=== PATIENT | male | born 1995 | race Caucasian/White ===

== ENCOUNTER 2017-01-10 12:03 | Emergency (ER) | payer OTHER ==
[~2017-01-10] VITALS: Ht 160 cm; Wt 70.3 kg
--- NOTE | 2017-01-10 12:03 | NUR ---
PATIENT BIBA TO BED 3.
--- NOTE | 2017-01-10 12:05 | NUR ---
21/M BIBA C/O SOB X TODAY. PATIENT C/O L FLANK X TODAY. PT DENIES N/V/D; SKIN IS PINK/WARM/DRY; AAOX4 WITH EVEN AND STEADY GAIT; LUNGS CLEAR BL; HR EVEN AND REGULAR; PT DENIES ANY SOB, OR COUGH AT THIS TIME AFTER RECIEVING BREATHING TX IN THE FIELD PRIOR TO ARRIVAL; PATIENT STATES PAIN OF 6/10 AT THIS TIME; VSS; PATIENT POSITIONED FOR COMFORT; HOB ELEVATED; BEDRAILS UP X2; BED DOWN. ER MD MADE AWARE OF PT STATUS.
[2017-01-10 12:11] VITALS: BP 124/78
[2017-01-10] MEDS ORDERED: VENTOLIN H0.09 MG/Ac IH (12:16)
[2017-01-10 14:00] VITALS: BP 123/67
--- NOTE | 2017-01-10 14:00 | NUR ---
Patient discharged with v/s stable. Written and verbal after care instructions given and explained. Patient alert, oriented and verbalized understanding of instructions. Ambulatory with steady gait. All questions addressed prior to discharge. ID band removed. Patient advised to follow up with PMD. Rx of ALBUTEROL &PREDNISONE given. Patient educated on indication of medication including possible reaction and side effects. Opportunity to ask questions provided and answered.
== END 2017-01-10 14:00 | disposition home or self-care (01) ==
LOC: MED 12:10
DX: J45.901 Unspecified asthma with (acute) exacerbation (principal); F17.200 Nicotine dependence, unspecified, uncomplicated

== ENCOUNTER 2019-02-24 15:28 | Emergency (ER) | payer OTHER ==
[~2019-02-24] VITALS: Ht 162.6 cm; Wt 72.6 kg
[~2019-02-24 15:28] MED LIST: ALBU0.0912 IH
[2019-02-24 15:33] VITALS: BP 122/55
--- NOTE | 2019-02-24 17:18 | NUR ---
PATIENT VITAL SIGNS TAKEN. IN NO DISTRESS.EXPLAINED FOR THE WAIT.
--- NOTE | 2019-02-24 18:34 | NUR ---
PATIENT PRESENTS TO ED WITH C/O CRAMPING EPIGASTRIC PAIN --LAST BM TODAY SOFT WITH FORM DESCRIBED BY PT. DENIES RECENT INJURY/TRAUMA SKIN IS PINK/WARM/DRY; AAOX4 WITH EVEN AND STEADY GAIT; LUNGS CLEAR BL; HR EVEN AND REGULAR; PT DENIES ANY FEVER, CP, SOB, OR COUGH AT THIS TIME; PATIENT STATES PAIN OF 8/10 AT THIS TIME; VSS; PATIENT POSITIONED FOR COMFORT; HOB ELEVATED; BEDRAILS UP X2; BED DOWN. ER MD MADE AWARE OF PT STATUS.
--- NOTE | 2019-02-24 21:19 | NUR ---
DR PAIGE AT BEDSIDE
[2019-02-24 21:45] LABS: BASOPHILS # (AUTO) 0.1 K/uL (0.00-0.22); BASOPHILS % (AUTO) 0.9 % (0.0-2.0); EOSINOPHILS # (AUTO) 0.2 K/uL (0-0.4); EOSINOPHILS % (AUTO) 3.1 % (0.0-4.0); HEMATOCRIT 44.3 % (36-52); HEMOGLOBIN 14.2 g/dL (12.0-18.0); LYMPHOCYTES # (AUTO) 3.2 K/uL (2.0-11.5); LYMPHOCYTES % (AUTO) 51.7 % (20.5-51.1); MEAN CORPUSCULAR HEMOGLOBIN 26 pg (27-31); MEAN CORPUSCULAR HGB CONC 32 g/dL (33-37); MONOCYTES # (AUTO) 0.5 K/uL (0.8-1.0); MONOCYTES % (AUTO) 8.7 % (1.7-9.3); NEUTROPHILS # (AUTO) 2.2 K/uL (1.8-7.7); NEUTROPHILS % (AUTO) 35.6 % (42.2-75.2); PLATELET COUNT (AUTO) 271 K/uL (140-450); RED BLOOD CELL COUNT(AUTO) 5.54 MIL/uL (4.20-6.10); RED CELL DISTRIBUTION WIDTH 14.2 % (11.6-13.7); WHITE BLOOD COUNT (AUTO) 6.1 K/uL (4.8-10.8)
[2019-02-24 21:57] LABS: ANION GAP 11.9 (8-16); CARBON DIOXIDE 28.2 mmol/L (21-32); CREATININE 0.9 mg/dL (0.7-1.3); POTASSIUM 4.1 mmol/L (3.5-5.1)
[2019-02-24 22:04] LABS: ALBUMIN 3.8 g/dL (3.4-5.0); TOTAL BILIRUBIN 0.6 mg/dL (0.0-1.0)
[2019-02-24 22:11] VITALS: BP 119/62
--- NOTE | 2019-02-24 22:11 | NUR ---
Patient discharged with v/s stable. Written and verbal after care instructions given and explained. Patient alert, oriented and verbalized understanding of instructions. Ambulatory with steady gait. All questions addressed prior to discharge. ID band removed. Patient advised to follow up with PMD. Rx of MILK OF MAG given. Patient educated on indication of medication including possible reaction and side effects. Opportunity to ask questions provided and answered.
[2019-02-24 22:58] LABS: APPEARANCE,URINE CLEAR (CLEAR); BILIRUBIN,URINE NEGATIVE (NEGATIVE); BLOOD, URINE NEGATIVE (NEGATIVE); COLOR,URINE YELLOW (YELLOW); LEUKOCYTE ESTERASE ,URINE NEGATIVE (NEGATIVE); NITRITE, URINE NEGATIVE (NEGATIVE); PH,URINE 6.5 (5.0-9.0); UGLUCOSE NEGATIVE (NEGATIVE)
[2019-02-24 23:17] LABS: RBC,URINE 0-5 /HPF (0-5); WBC,URINE 0-5 /HPF (0-5)
== END 2019-02-24 22:11 | disposition home or self-care (01) ==
LOC: MED 15:28
DX: K59.00 Constipation, unspecified (principal); J45.909 Unspecified asthma, uncomplicated; Z79.899 Other long term (current) drug therapy
CPT/HCPCS: 36415; 74018; 80053; 81001; 82150; 83690; 85025; 99284

== ENCOUNTER 2019-11-13 09:19 | Emergency (ER) | payer OTHER ==
[~2019-11-13] VITALS: Ht 162.6 cm; Wt 63.5 kg
--- NOTE | 2019-11-13 09:23 | NUR ---
PT AMBULATED TO BED 4 WITH USE OF CRUTCHES.
--- NOTE | 2019-11-13 09:23 | NUR ---
C/O LEFT FOOT PAIN WITH MINIMAL MOVEMENT TO TOES X 5 DAYS SWELLING NOTED UP TO CALF +2 PEDAL PULSE <3 SEC CAP REFILL,PT AWAKE ,ALERT, AMBULATORY WITH CRATCHES .MEDS TAKEN IBUPROFEN AND MOTRIN WITH NO RELIEF OF SWEELING AND PAIN, DENIES INJURY OR LONG CAR RIDES PMHX ASTHMA RX---NONE
[2019-11-13 09:28] VITALS: BP 128/71
--- NOTE | 2019-11-13 09:51 | NUR ---
Dr. Chu is evaluating the patient at bedside.
--- NOTE | 2019-11-13 09:51 | NUR ---
DR CADE ON BEDSIDE.
--- NOTE | 2019-11-13 10:35 | NUR ---
US AT BEDSIDE.
--- NOTE | 2019-11-13 10:36 | NUR ---
US tech at bedside for exam.
[2019-11-13 10:42] LABS: BASOPHILS # (AUTO) 0.1 K/uL (0.00-0.22); BASOPHILS % (AUTO) 1.1 % (0.0-2.0); EOSINOPHILS # (AUTO) 0.3 K/uL (0-0.4); EOSINOPHILS % (AUTO) 4.9 % (0.0-4.0); HEMATOCRIT 44.9 % (36-52); HEMOGLOBIN 14.9 g/dL (12.0-18.0); LYMPHOCYTES # (AUTO) 2.3 K/uL (2.0-11.5); LYMPHOCYTES % (AUTO) 41.4 % (20.5-51.1); MEAN CORPUSCULAR HEMOGLOBIN 27 pg (27-31); MEAN CORPUSCULAR HGB CONC 33 g/dL (33-37); MEAN CORPUSCULAR VOLUME 80.3 fL (80-94); MONOCYTES # (AUTO) 0.5 K/uL (0.8-1.0); MONOCYTES % (AUTO) 8.7 % (1.7-9.3); NEUTROPHILS # (AUTO) 2.4 K/uL (1.8-7.7); NEUTROPHILS % (AUTO) 43.9 % (42.2-75.2); PLATELET COUNT (AUTO) 271 K/uL (140-450); RED CELL DISTRIBUTION WIDTH 13.2 % (11.6-13.7); WHITE BLOOD COUNT (AUTO) 5.6 K/uL (4.8-10.8)
[2019-11-13 10:50] LABS: ANION GAP 14.5 (8-16); CARBON DIOXIDE 26.7 mmol/L (21-32); CREATININE 0.9 mg/dL (0.7-1.3); POTASSIUM 4.2 mmol/L (3.5-5.1)
[2019-11-13 10:56] LABS: ALBUMIN 3.9 g/dL (3.4-5.0); TOTAL BILIRUBIN 0.6 mg/dL (0.0-1.0)
[2019-11-13 11:01] LABS: PROTHROMBIN TIME 9.9 secs (10.8-13.4)
--- NOTE | 2019-11-13 11:42 | NUR ---
xray at bedside.
--- NOTE | 2019-11-13 12:55 | NUR ---
Dr. Chu is re-evaluating the patient at bedside.
[2019-11-13 13:00] VITALS: BP 131/73
--- NOTE | 2019-11-13 13:00 | NUR ---
Patient discharged with v/s stable. Written and verbal after care instructions given and explained. Patient verbalized understanding. Ambulatory with steady gait. All questions addressed prior to discharge. Advised to follow up with PMD.
== END 2019-11-13 13:00 | disposition home or self-care (01) ==
LOC: MED 09:19
DX: R60.0 Localized edema (principal); M79.605 Pain in left leg; M79.604 Pain in right leg; Z79.899 Other long term (current) drug therapy; J45.909 Unspecified asthma, uncomplicated; Z98.890 Other specified postprocedural states
CPT/HCPCS: 36415; 73610; 73630; 80053; 85025; 85610; 85730; 93971; 99284; Q0092

== ENCOUNTER 2021-05-06 15:09 | Emergency (ER) | payer OTHER ==
[~2021-05-06] VITALS: Ht 162.6 cm; Wt 77.1 kg
[2021-05-06 15:13] VITALS: BP 133/73
[2021-05-06] MEDS ORDERED: KETOROLAC 30 MG/ML VIAL IM ONE (15:45)
[2021-05-06] MEDS ORDERED: NAPR-54 PO (15:51)
[2021-05-06 16:07] VITALS: BP 133/73
== END 2021-05-06 16:08 | disposition home or self-care (01) ==
LOC: MED 15:09
DX: R07.89 Other chest pain (principal); R06.02 Shortness of breath; J45.909 Unspecified asthma, uncomplicated; Z79.899 Other long term (current) drug therapy
CPT/HCPCS: 71045; 93005; 96372; 99283; J1885

== ENCOUNTER 2022-06-23 13:12 | Emergency (ER) | payer OTHER ==
[~2022-06-23] VITALS: Ht 162.6 cm; Wt 73.9 kg
[~2022-06-23 13:12] MED LIST changes: +NAPR-54 PO
[2022-06-23 13:21] VITALS: BP 132/82
[2022-06-23] MEDS ORDERED: KETOROLAC 30 MG/ML VIAL IM ONE (14:10)
[2022-06-23] MEDS ORDERED: IBUP-2213 PO (14:14)
[2022-06-23] MEDS ORDERED: CYCL-711 PO (14:14)
--- NOTE | 2022-06-23 14:31 | NUR ---
PT PLACED IN RIGHT SHOULDER SLING.
--- NOTE | 2022-06-23 15:12 | NUR ---
27 y/o male, c/o right arm pain with tense feeling with movement for 2 days. pt states he was doing new workout and now feels pain in extremity. pt has limited rom on extremity, states he has tried salt soaks, ibuprofen and tylenol, no relief. denies nausea, vomiting, diarrhea. skin is pink/warm/dry. a&o x4 with even and steady gait. lungs clear bl, heart rate even and regular. pt denies any fever, cp, sob, or cough at this time. pt states pain is 9/10 at this time. vss. ermd made aware of pt. pmh: denies nka med: tylenol, ibuprofen
--- NOTE | 2022-06-23 15:18 | NUR ---
Patient discharged with v/s stable. Written and verbal after care instructions given. Patient alert, oriented and verbalized understanding of instructions. Ambulatory with steady gait. All questions addressed prior to discharge. ID band removed. Patient advised to follow up with PMD. Rx of Flexeril and Ibuprofen given. Opportunity to ask questions provided and answered. WORK NOTE HANDED TO PATIENT.
[2022-06-23 15:19] VITALS: BP 157/87
--- NOTE | 2022-06-23 15:19 | NUR ---
Chart checked and completed. The patient's care was reviewed and supervised by Radha Cleveland RN.
== END 2022-06-23 15:18 | disposition home or self-care (01) ==
LOC: MED 13:12
DX: S46.212A Strain of muscle, fascia and tendon of other parts of biceps, left arm, initial encounter (principal); S46.211A Strain of muscle, fascia and tendon of other parts of biceps, right arm, initial encounter; J45.909 Unspecified asthma, uncomplicated; X58.XXXA Exposure to other specified factors, initial encounter; Y93.89 Activity, other specified; Y92.89 Other specified places as the place of occurrence of the external cause; Y99.8 Other external cause status
CPT/HCPCS: 96372; 99283; J1885